=== PATIENT | male | born 1960 | race African-American/Black ===

== ENCOUNTER 2019-05-23 12:54 | Emergency (ER) | payer BC, MEDICAID ==
[~2019-05-23] VITALS: Ht 195.6 cm; Wt 125.0 kg
[2019-05-23 15:21] LABS: CHLORIDE 107 mEq/L (98-107)
[2019-05-23 15:22] LABS: INR 1.1; PARTIAL THROMBOPLASTIN TIME 25.9 sec (23.4-31.0); PROTHROMBIN TIME 11.7 sec (9.6-11.0)
[2019-05-23 15:24] LABS: ETHANOL BLOOD < 10 mg/dL
[2019-05-23] MEDS: SODIUM CHLORIDE 0.9% 1,000 ML IV ONE (15:30)
[2019-05-23 15:31] LABS: BASOPHILS % 0.1 % (0.0-2.0); EOSINOPHILS % 0.1 % (0.0-5.0); HEMATOCRIT. 40.1 % (42.0-52.0); HEMOGLOBIN. 13.5 g/dL (14.0-18.0); LYMPHOCYTES % 10.8 % (20.0-50.0); MEAN CORPUSCULAR HEMOGLOBIN 29.6 pg (28.0-32.0); MEAN CORPUSCULAR VOLUME 88.3 fL (80.0-94.0); MEAN PLATELET VOLUME 7.4 fl (7.4-10.4); MONOCYTES % 8.1 % (2.0-8.0); NEUTROPHILS % 80.9 % (40.0-76.0); PLATELET 223 x1000/uL (130-400); RED BLOOD CELL COUNT 4.54 mill/uL (4.7-6.1); RED CELL DISTRIBUTION WIDTH 14.4 % (11.6-14.6)
[2019-05-23 17:20] VITALS: BP 119/56
== END 2019-05-23 17:30 | disposition home or self-care (01) ==
LOC: ER 12:54 → CANBEDREQ 19:47
DX: N23 Unspecified renal colic (principal); E86.0 Dehydration; I10 Essential (primary) hypertension
CPT/HCPCS: 36415; 71045; 74176; 80053; 80320; 83605; 83690; 83880; 84484; 85025; 85610; 85730; 87040; 87804; 93005; 96360; 99285; J7030; G0480